=== PATIENT | male | born 1965 | race African-American/Black ===

== ENCOUNTER 2017-03-08 17:19 | Emergency (ER) | payer BC ==
[~2017-03-08] VITALS: Ht 182.9 cm; Wt 145.4 kg
[2017-03-08 21:56] VITALS: BP 131/88
== END 2017-03-08 21:58 | disposition home or self-care (01) ==
LOC: EMS 17:20
DX: R22.1 Localized swelling, mass and lump, neck (principal); I10 Essential (primary) hypertension
CPT/HCPCS: 99284

== ENCOUNTER 2017-12-08 10:49 | Emergency (ER) | payer SELFPAY ==
[~2017-12-08] VITALS: Ht 182.9 cm; Wt 140.9 kg
[2017-12-08 11:35] LABS: INFLUENZA TYPE A NEGATIVE FOR TYPE A (NEGATIVE); INFLUENZA TYPE B NEGATIVE FOR TYPE B (NEGATIVE)
[2017-12-08] MEDS ORDERED: ACETAMINOPHEN 325 MG TABLET PO ONE (12:15)
[2017-12-08 13:30] VITALS: BP 149/102
== END 2017-12-08 14:24 | disposition home or self-care (01) ==
LOC: EMS 10:59
DX: J06.9 Acute upper respiratory infection, unspecified (principal); R03.0 Elevated blood-pressure reading, without diagnosis of hypertension
CPT/HCPCS: 71046; 87804; 99285